=== PATIENT | female | born 1990 | race Caucasian/White ===

== ENCOUNTER 2017-02-18 19:31 | Emergency (ER) | payer OTHER ==
[2017-02-18 19:36] VITALS: BMI 35.4
--- NOTE | 2017-02-18 20:33 | PDOC ---
History of Present Illness - General History Source: Patient Exam Limitations: No Limitations - History of Present Illness Initial Comments: 02/18/17 22:43 The patient is a 27-year-old female BIBA with a significant past medical history of asthma and migraines, and presents to the emergency department with shortness of breath since 3 pm today. Patient reports she has had increasing asthma, wheezing, and productive cough for the last 2 weeks. She has been lifting, cleaning, and climbing up and down stairs frequently as she is moving. Today, she was climbing stairs when she began to have difficulty breathing, chest tightness, and wheezing. She was unable to find her inhaler and she has a nebulizer at home that does not work. EMS gave her O2 en route. She states she recently saw an bottom steep tender who prescribed her Breo and prednisone 5 (finished 2 days ago). She has another appointment in 3 days. She also notes she had a stomach illness last week with a TMax 100.5. The patient denies chest pain, headache and dizziness. The patient denies fever , chills, nausea, vomit, diarrhea and constipation. The patient denies dysuria, frequency, urgency and hematuria. LMP: 4 months ago Allergies: NKDA Past Surgical History: None reported Social History: No toxic habits reported Family PMHx: asthma <Aleena Kaiser - Last Filed: 02/18/17 22:43> <Elizabeth Velazquez - Last Filed: 02/19/17 02:45> - General Chief Complaint: Shortness of Breath Stated Complaint: S.O.B Time Seen by Provider: 02/18/17 20:20 Past History <Aleena Kaiser - Last Filed: 02/18/17 22:43> - Past Medical History Asthma: Yes - Immunization History Immunization Up to Date: Yes - Suicide/Smoking/Psychosocial Hx Smoking History: Never smoked Hx Alcohol Use: No Drug/Substance Use Hx: No <Elizabeth Velazquez - Last Filed: 02/19/17 02:45> - Past Medical History Allergies/Adverse Reactions: Allergies Allergy/AdvReac Type Severity Reaction Status Date / Time No Known Allergies Allergy Verified 02/18/17 19:36 Home Medications: Ambulatory Orders Albuterol Sulfate Inhaler - [Ventolin Hfa Inhaler -] 2 inh PO Q6H #1 inh 10/29/ 17 Fluticasone/Vilanterol [Breo Ellipta 100-25 Mcg INH] 1 each IH ASDIR 02/18/17 Gentamicin 0.3% Eye Drops - 1 - 2 drop OD Q4H #1 dropsbtl 02/18/17 Methylprednisolone [Medrol Dose Dick] 4 mg PO ASDIR #21 tablet 02/18/17 Montelukast Na [Singulair -] 10 mg PO HS #30 tablet 02/18/17 Review of Systems - Review of Systems Able to Perform ROS?: Yes Comments:: 02/18/17 22:43 GENERAL/CONSTITUTIONAL: No fever or chills. No weakness. HEAD, EYES, EARS, NOSE AND THROAT: No change in vision. No ear pain or discharge. No sore throat. CARDIOVASCULAR: No chest pain. RESPIRATORY: (+) Shortness of breath. (+) cough, (+) wheezing. No hemoptysis. GASTROINTESTINAL: No nausea, vomiting, diarrhea or constipation. GENITOURINARY: No dysuria, frequency, or change in urination. MUSCULOSKELETAL: No joint or muscle swelling or pain. No neck or back pain. SKIN: No rash NEUROLOGIC: No headache, vertigo, loss of consciousness, or change in strength/ sensation. ENDOCRINE: No increased thirst. No abnormal weight change. HEMATOLOGIC/LYMPHATIC: No anemia, easy bleeding, or history of blood clots. ALLERGIC/IMMUNOLOGIC: No hives or skin allergy. <Aleena Kaiser - Last Filed: 02/18/17 22:43> *Physical Exam - Vital Signs Last Vital Signs Temp Pulse Resp BP Pulse Ox 98.5 F 94 H 20 140/87 96 02/18/17 19:33 02/18/17 19:33 02/18/17 19:33 02/18/17 19:33 02/18/17 19:33 - Physical Exam Comments: 02/18/17 22:43 GENERAL: Awake, alert, and fully oriented, in no acute distress. Afebrile HEAD: No signs of trauma EYES: PERRLA, EOMI, sclera anicteric, (+) Right eye conjunctivitis. ENT: Auricles normal inspection, hearing grossly normal, nares patent, oropharynx clear without exudates. Moist mucosa NECK: Normal ROM, supple, no lymphadenopathy, JVD, or masses LUNGS: (+) Patchy wheezing on right and left upper lobes. No crackles HEART: Regular rate and rhythm, normal S1 and S2, no murmurs, rubs or gallops ABDOMEN: Soft, nontender, normoactive bowel sounds. No guarding, no rebound. No masses EXTREMITIES: Normal range of motion, no edema. No clubbing or cyanosis. No cords, erythema, or tenderness NEUROLOGICAL: Cranial nerves II through XII grossly intact. Normal speech, normal gait SKIN: Warm, Dry, normal turgor, no rashes or lesions noted. <Aleena Kaiser - Last Filed: 02/18/17 22:43> - Vital Signs Last Vital Signs Temp Pulse Resp BP Pulse Ox 98.5 F 94 H 20 140/87 96 02/18/17 19:33 02/18/17 19:33 02/18/17 19:33 02/18/17 19:33 02/18/17 19:33 <Elizabeth Velazquez - Last Filed: 02/19/17 02:45> ED Treatment Course - ADDITIONAL ORDERS Additional order review: Laboratory Results 02/18/17 Unknown Urine HCG, Qual Negative - Medications Given in the ED: ED Medications Discontinued Medications Generic Name Dose Route Start Last Admin Trade Name Freq PRN Reason Stop Dose Admin Albuterol/Ipratropium 1 amp 02/18/17 20:40 02/18/17 21:26 Duoneb - NEB 02/18/17 20:41 1 amp ONCE ONE Administration Albuterol/Ipratropium 1 amp 02/18/17 22:02 02/18/17 22:06 Duoneb - NEB 02/18/17 22:03 1 amp ONCE ONE Administration Montelukast Sodium 10 mg 02/18/17 20:44 02/18/17 20:53 Singulair - PO 02/18/17 20:45 10 mg ONCE ONE Administration Prednisone 40 mg 02/18/17 20:41 02/18/17 20:53 Deltasone - PO 02/18/17 20:42 40 mg ONCE ONE Administration <Aleena Kaiser - Last Filed: 02/18/17 22:43> Medical Decision Making - Medical Decision Making 02/19/17 02:43 Pt is packing up her apartment to move and she had an asthma exacerbation with all the dust. Also change of weather is affecting her asthma. Pt couldn't find her inhaler in the mess at home. Pt will be prescibed an inhaler. She feels better in the ER with duonebs and steroids. She will go home with the same. She will also be treated with singulair for environmental allergens. She will also be sent home with a prescription for ophtho abx drops, as she has a conjunctivitis on the right side. She has long nails and likely scratched her eyes. <Elizabeth Velazquez - Last Filed: 02/19/17 02:45> *DC/Admit/Observation/Transfer - Attestations Scribe Attestion: 02/18/17 22:44 Documentation prepared by Aleena Kaiser, acting as medical director of hospice for Elizabeth Velazquez MD. <Aleena Kaiser - Last Filed: 02/18/17 22:43> - Discharge Dispostion Admit: No <Elizabeth Velazquez - Last Filed: 02/19/17 02:45> Diagnosis at time of Disposition: Asthma exacerbation - Discharge Dispostion Disposition: HOME Condition at time of disposition: Improved - Prescriptions Prescriptions: Gentamicin 0.3% Eye Drops - 1 - 2 drop OD Q4H #1 dropsbtl Methylprednisolone [Medrol Dose Dick] 4 mg PO ASDIR #21 tablet Montelukast Na [Singulair -] 10 mg PO HS #30 tablet Albuterol Sulfate Inhaler - [Ventolin Hfa Inhaler -] 2 inh PO Q6H #1 inh - Patient Instructions Printed Discharge Instructions: DI for Asthma -- Adult - Post Discharge Activity Forms/Work/School Notes: Back to Work
[2017-02-18] MEDS ORDERED: ALBUTEROL SO4 2.5/IPRATROPIUM 0.5 INH SOL 3 ML VIAL.NEB. NEB ONE ×2 (20:40→22:02)
[2017-02-18] MEDS ORDERED: predniSONE 20 MG TABLET (UD) PO ONE (20:41)
[2017-02-18] MEDS ORDERED: MONTELUKAST NA 10 MG TABLET PO ONE (20:44)
[2017-02-18] MEDS ORDERED: predniSONE 20 MG TABLET (UD) ONE (20:48)
[2017-02-18] MEDS ORDERED: MONTELUKAST NA 10 MG TABLET ONE (20:48)
[2017-02-18 22:52] VITALS: BP 144/88; PULSE 85; TEMP 98
== END 2017-02-18 22:53 | disposition home or self-care (01) ==
LOC: JER 19:31
PROC: 3E0F7GC Introduction of Other Therapeutic Substance into Respiratory Tract, Via Natural or Artificial Opening (ICD-10-PCS; principal; 2017-02-18)
PROC: 3E0F7GC Introduction of Other Therapeutic Substance into Respiratory Tract, Via Natural or Artificial Opening (ICD-10-PCS; 2017-02-18)
DX: J45.901 Unspecified asthma with (acute) exacerbation (principal)
CPT/HCPCS: 71020-TC; 84703; 94640; 99281-25